=== PATIENT | female | born 1955 | race Caucasian/White ===

== ENCOUNTER → 2017-01-01 | Outpatient (CLI) | payer MEDICARE, OTHER ==
[~2017-01-01] VITALS: Ht 154.9 cm; Wt 118.0 kg
[~2017-01-01] MED LIST: ASPI-1093 PO; ATOR40TA28 PO; HYDR25TA PO; ISOS30TA6 PO; LEVO25TA9 PO; LOSA50TA37 PO; METF500T7 PO; NAPR-58 PO; NITR.4 SL; TRAZ-144 PO; VITAMIN D PO
[2017-01-01 14:17] VITALS: BP 108/52
== END | disposition home or self-care (01) ==
LOC: SRCNTR 14:11
PROVIDERS: ATTEND Podiatrist Foot & Ankle Surgery
DX: E11.9 Type 2 diabetes mellitus without complications (principal); M79.675 Pain in left toe(s); M79.674 Pain in right toe(s); L57.0 Actinic keratosis; L29.8 Other pruritus
CPT/HCPCS: G0463

== ENCOUNTER → 2017-02-26 | Outpatient (CLI) | payer MEDICARE, OTHER ==
[~2017-02-26] VITALS: Ht 152.4 cm; Wt 116.0 kg
[2017-02-26 14:55] VITALS: BP 146/72
== END | disposition home or self-care (01) ==
LOC: SRCNTR 14:46
PROVIDERS: ATTEND Podiatrist Foot & Ankle Surgery
DX: E11.9 Type 2 diabetes mellitus without complications (principal); I73.9 Peripheral vascular disease, unspecified; L57.0 Actinic keratosis; L29.8 Other pruritus; M79.675 Pain in left toe(s); M79.674 Pain in right toe(s)
CPT/HCPCS: G0463

== ENCOUNTER → 2017-04-30 | Outpatient (CLI) | payer MEDICARE, OTHER ==
[~2017-04-30] VITALS: Ht 154.9 cm; Wt 114.0 kg
[2017-04-30 14:41] VITALS: BP 157/87
== END | disposition home or self-care (01) ==
LOC: SRCNTR 14:27
PROVIDERS: ATTEND Podiatrist Foot & Ankle Surgery
DX: E11.51 Type 2 diabetes mellitus with diabetic peripheral angiopathy without gangrene (principal); L57.0 Actinic keratosis; M21.612 Bunion of left foot; M21.611 Bunion of right foot; L29.9 Pruritus, unspecified
CPT/HCPCS: G0463

== ENCOUNTER → 2017-07-30 | Outpatient (CLI) | payer MEDICARE, OTHER ==
[~2017-07-30] VITALS: Ht 154.9 cm; Wt 104.0 kg
[2017-07-30 14:30] VITALS: BP 132/80
== END | disposition home or self-care (01) ==
LOC: SRCNTR 14:24
PROVIDERS: ATTEND Podiatrist Foot & Ankle Surgery
DX: E11.9 Type 2 diabetes mellitus without complications (principal); I10 Essential (primary) hypertension; M79.644 Pain in right finger(s); M79.645 Pain in left finger(s); L57.0 Actinic keratosis; Z79.82 Long term (current) use of aspirin
CPT/HCPCS: G0463

== ENCOUNTER → 2017-12-31 | Outpatient (CLI) | payer MEDICARE, OTHER ==
[~2017-12-31] VITALS: Ht 154.9 cm; Wt 97.0 kg
[~2017-12-31] MED LIST changes: -ASPI-1093 PO; +ASPI-1188 PO
[2017-12-31 14:40] VITALS: BP 114/59
== END | disposition home or self-care (01) ==
LOC: SRCNTR 14:30
PROVIDERS: ATTEND Podiatrist Foot & Ankle Surgery
DX: E11.51 Type 2 diabetes mellitus with diabetic peripheral angiopathy without gangrene (principal); L57.0 Actinic keratosis; Z79.82 Long term (current) use of aspirin
CPT/HCPCS: G0463

== ENCOUNTER → 2018-04-01 | Outpatient (CLI) | payer OTHER ==
[~2018-04-01] VITALS: Ht 154.9 cm; Wt 101.0 kg
[~2018-04-01] MED LIST changes: +AMMO226L TP; +HYDR-4031 PO; +PARO20TA24 PO; +PHEN37.591 PO; +VITAD1000 PO
[2018-04-01 15:06] VITALS: BP 125/75
== END | disposition home or self-care (01) ==
LOC: SRCNTR 14:55
PROVIDERS: ATTEND Podiatrist Foot & Ankle Surgery
DX: E11.51 Type 2 diabetes mellitus with diabetic peripheral angiopathy without gangrene (principal); L57.0 Actinic keratosis; Z79.82 Long term (current) use of aspirin
CPT/HCPCS: G0463

== ENCOUNTER 2018-04-17 18:12 | Emergency (ER) | payer OTHER ==
[~2018-04-17] VITALS: Ht 154.9 cm; Wt 101.0 kg
[~2018-04-17 18:12] MED LIST changes: -AMMO226L TP; -HYDR-4031 PO; -PARO20TA24 PO; -PHEN37.591 PO; -VITAD1000 PO
[2018-04-17 18:32] LABS: GLUCOSE,POINT OF CARE 95 MG/DL (70-110)
[2018-04-17] MEDS ORDERED: PARO20TA24 PO (18:36)
[2018-04-17] MEDS ORDERED: AMMO226L TP (18:36)
[2018-04-17] MEDS ORDERED: VITAD1000 PO (18:36)
[2018-04-17] MEDS ORDERED: PHEN37.591 PO (18:36)
[2018-04-17] MEDS ORDERED: HYDR-4031 PO (18:36)
[2018-04-17] MEDS ORDERED: KETOROLAC TROMETHAMINE 60 MG/2 ML VIAL IM ONE (21:00)
[2018-04-17 21:16] LABS: BASOPHILS % (AUTO) 0.8 % (0.0-2.0); HEMATOCRIT 32.1 % (36-46); HEMOGLOBIN 10.9 g/dL (12.0-16.0); LYMPHOCYTES % (AUTO) 45.9 % (22.0-44.0); MEAN CORPUSCULAR HEMOGLOBIN 30.2 pg (26.0-34.0); MEAN CORPUSCULAR VOLUME 89 fL (80-100); MONOCYTES # (AUTO) 0.4 K/uL (0.1-1.0); MONOCYTES % (AUTO) 5.9 % (2.0-9.0); NEUTROPHILS # (AUTO) 3.1 K/uL (1.8-7.7); NEUTROPHILS % (AUTO) 46.4 % (40.0-70.0); PLATELET COUNT (AUTO) 249 K/uL (150-450); RED CELL DISTRIBUTION WIDTH 14.2 % (11.5-14.5)
[2018-04-17 21:30] LABS: ANION GAP 10 mmol/L (8-16); CALCIUM, TOTAL 8.7 mg/dL (8.8-10.5); CARBON DIOXIDE 24 mmol/L (22-29); CHLORIDE 108 mmol/L (98-107); CREATININE 0.78 mg/dL (0.60-1.30); GLOMERULAR FILTR. RATE CALC > 60 mL/min (>60); GLUCOSE,RANDOM 94 mg/dL (70-110); POTASSIUM 3.6 mmol/L (3.5-5.1); SODIUM SERUM 142 mmol/L (136-145); UREA NITROGEN, BLOOD 18 mg/dL (7-18)
[2018-04-17 21:36] LABS: ALANINE AMINOTRANSFERASE 22 U/L (12-78); ALBUMIN 3.4 g/dL (3.4-5.0); ALKALINE PHOSPHATASE 95 U/L (46-116); ASPARTATE AMINOTRANSFERASE 21 U/L (15-37); BILIRUBIN,TOTAL 0.3 mg/dL (0.1-1.0); TOTAL PROTEIN, SERUM 7.1 g/dL (6.4-8.2); URIC ACID 4.5 mg/dL (2.6-7.2)
[2018-04-17 21:45] LABS: C-REACTIVE PROTEIN QUANT 0.86 mg/dL (0.00-0.30)
[2018-04-17 22:35] LABS: ERYTHROCYTE SEDIMENTATION RATE 22 MM/HR (0-20)
[2018-04-17 23:52] VITALS: BP 120/74
== END 2018-04-17 23:54 | disposition home or self-care (01) ==
LOC: EMS 18:14
DX: M19.90 Unspecified osteoarthritis, unspecified site (principal); M79.89 Other specified soft tissue disorders; E11.9 Type 2 diabetes mellitus without complications; E78.00 Pure hypercholesterolemia, unspecified; I10 Essential (primary) hypertension; G89.29 Other chronic pain; E03.9 Hypothyroidism, unspecified
CPT/HCPCS: 36415; 51702; 73110; 80053; 82962; 84550; 85025; 85379; 85651; 86140; 93971; 96372; 99285; J1885

== ENCOUNTER → 2018-05-09 | Outpatient (CLI) | payer MEDICARE, OTHER ==
[~2018-05-09] VITALS: Ht 157.5 cm; Wt 100.0 kg
[~2018-05-09] MED LIST changes: +AMMO226L TP; +HYDR-4031 PO; +PARO20TA24 PO; +PHEN37.591 PO; +VITAD1000 PO; -VITAMIN D PO
[2018-05-09 10:59] VITALS: BP 105/79
[2018-05-09 11:38] LABS: GLUCOMETER DEV NAME(LOC) SHC; GLUCOSE,POINT OF CARE 134 MG/DL (70-110)
== END | disposition home or self-care (01) ==
LOC: SRCNTR 10:56
PROVIDERS: ATTEND Internal Medicine Cardiovascular Disease
DX: E11.9 Type 2 diabetes mellitus without complications (principal); I11.0 Hypertensive heart disease with heart failure; E78.5 Hyperlipidemia, unspecified; E03.9 Hypothyroidism, unspecified; E66.9 Obesity, unspecified
CPT/HCPCS: 82962; G0463

== ENCOUNTER 2020-04-03 14:56 | Emergency (ER) | payer OTHER ==
[~2020-04-03] VITALS: Ht 152.4 cm; Wt 109.1 kg
[~2020-04-03 14:56] MED LIST changes: -AMMO226L TP; -ASPI-1188 PO; +ASPI-1522 PO; +CHOL100018 PO; +HYDR-1475 PO; -HYDR-4031 PO; -HYDR25TA PO; +METF-911 PO; -METF500T7 PO; +NAPR-1025 PO; -NAPR-58 PO; -NITR.4 SL; +NITR0.4T52 SL; -PARO20TA24 PO; -PHEN37.591 PO; -TRAZ-144 PO; +TRAZ-252 PO; -VITAD1000 PO
[2020-04-03] MEDS ORDERED: KETOROLAC TROMETHAMINE 60 MG/2 ML VIAL IM ONE (15:45)
[2020-04-03 16:36] VITALS: BP 133/72
== END 2020-04-03 16:50 | disposition home or self-care (01) ==
LOC: EMS 14:58
DX: S83.92XA Sprain of unspecified site of left knee, initial encounter (principal); E11.9 Type 2 diabetes mellitus without complications; E78.00 Pure hypercholesterolemia, unspecified; I10 Essential (primary) hypertension; G89.29 Other chronic pain; Z79.82 Long term (current) use of aspirin; Z79.84 Long term (current) use of oral hypoglycemic drugs; X58.XXXA Exposure to other specified factors, initial encounter; Y93.89 Activity, other specified; Y92.89 Other specified places as the place of occurrence of the external cause; Y99.8 Other external cause status
CPT/HCPCS: 29505; 96372; 99283; J1885

== ENCOUNTER 2020-04-08 12:37 | Emergency (ER) | payer OTHER ==
[~2020-04-08] VITALS: Ht 152.4 cm; Wt 113.6 kg
[2020-04-08] MEDS ORDERED: KETOROLAC TROMETHAMINE 60 MG/2 ML VIAL IM ONE (14:00)
[2020-04-08 15:32] VITALS: BP 143/72
== END 2020-04-08 16:11 | disposition home or self-care (01) ==
LOC: EMS 12:38
DX: M17.12 Unilateral primary osteoarthritis, left knee (principal); E11.9 Type 2 diabetes mellitus without complications; E78.00 Pure hypercholesterolemia, unspecified; I10 Essential (primary) hypertension; G89.29 Other chronic pain; Z79.82 Long term (current) use of aspirin
CPT/HCPCS: 73562; 82962; 96372; 99283; J1885

== ENCOUNTER 2022-04-30 21:28 | Emergency (ER) | payer OTHER ==
[~2022-04-30] VITALS: Ht 152.4 cm; Wt 109.1 kg
[~2022-04-30 21:28] MED LIST changes: -HYDR-1475 PO; +HYDR-4870 PO; -ISOS30TA6 PO; +ISOS30TA92 PO; +LOSA-382 PO; -LOSA50TA37 PO; +METF-81 PO; -METF-911 PO
[2022-04-30 21:46] LABS: APPEARANCE,URINE HAZY (CLEAR); BILIRUBIN,URINE NEGATIVE (NEGATIVE); GLUCOSE, URINE (UA) NEGATIVE (NEGATIVE); KETONES,URINE NEGATIVE (NEGATIVE); LEUKOCYTE ESTERASE ,URINE NEGATIVE (NEGATIVE); NITRATE,URINE NEGATIVE (NEGATIVE); OCCULT BLOOD,URINE NEGATIVE (NEGATIVE); PROTEIN,URINE NEGATIVE (NEGATIVE); SPECIFIC GRAVITIY, URINE 1.024 (1.003-1.030); UROBILINOGEN,URINE <=1.0 mg/dL (<=1.0)
[2022-04-30] MEDS ORDERED: LIDOCAINE 5% TRANSDERMAL PATCH TD ONE (22:00)
[2022-04-30] MEDS ORDERED: KETOROLAC TROMETHAMINE 30 MG/ML VIAL IM ONE (22:00)
[2022-04-30] MEDS ORDERED: HYDROCODONE/ACETAMINOPHEN 5-325 MG TABLET PO ONE (22:00)
[2022-04-30 23:24] VITALS: BP 135/60
== END 2022-05-01 00:08 | disposition home or self-care (01) ==
LOC: EMS 21:32
DX: M54.42 Lumbago with sciatica, left side (principal); M19.90 Unspecified osteoarthritis, unspecified site; E11.9 Type 2 diabetes mellitus without complications; E78.00 Pure hypercholesterolemia, unspecified; E03.9 Hypothyroidism, unspecified; I10 Essential (primary) hypertension; Z87.39 Personal history of other diseases of the musculoskeletal system and connective tissue; Z98.890 Other specified postprocedural states
CPT/HCPCS: 81003; 96372; 99283; J1885

== ENCOUNTER 2024-07-12 12:34 | Emergency (ER) | payer OTHER ==
[~2024-07-12] VITALS: Ht 154.9 cm; Wt 109.0 kg
[~2024-07-12 12:34] MED LIST changes: -HYDR-4870 PO; +HYDR25TA2 PO
[2024-07-12 12:41] VITALS: TEMP 98.3
[2024-07-12] MEDS ORDERED: ASPI-1451 PO (12:44)
[2024-07-12] MEDS ORDERED: METF-1211 PO (12:44)
[2024-07-12] MEDS ORDERED: ATOR-2 PO (12:44)
[2024-07-12] MEDS ORDERED: HYDR25TA PO (12:44)
[2024-07-12] MEDS ORDERED: CHOL25TA4 PO (13:09)
[2024-07-12] MEDS ORDERED: EZET10TA57 PO (13:09)
[2024-07-12] MEDS ORDERED: VALS160T31 PO (13:09)
[2024-07-12] MEDS: AMOX TR/POT CLAV 875 MG/125 MG TABLET PO ONE (13:28)
[2024-07-12] MEDS: PERTUSS(ACELL),DIPH,TET/PF 0.5 ML SYRINGE [ADULT] IM. ONE (13:29)
[2024-07-12] MEDS ORDERED: AMOX-457 PO (13:41)
[2024-07-12] MEDS: IBUPROFEN 600 MG TABLET PO ONE (14:30)
[2024-07-12] MEDS: ACETAMINOPHEN 325 MG TABLET PO ONE (14:30)
[2024-07-12 14:45] VITALS: BP 150/60; PULSE 70; RESP 16; O2SAT 98
== END 2024-07-12 15:03 | disposition home or self-care (01) ==
LOC: EMS 12:34
DX: S61.451A Open bite of right hand, initial encounter (principal); S61.052A Open bite of left thumb without damage to nail, initial encounter; M19.90 Unspecified osteoarthritis, unspecified site; E11.9 Type 2 diabetes mellitus without complications; E78.00 Pure hypercholesterolemia, unspecified; I10 Essential (primary) hypertension; E03.9 Hypothyroidism, unspecified; G89.29 Other chronic pain; M54.9 Dorsalgia, unspecified; Z98.890 Other specified postprocedural states; W54.0XXA Bitten by dog, initial encounter; Y93.89 Activity, other specified; Y92.89 Other specified places as the place of occurrence of the external cause; Y99.8 Other external cause status
CPT/HCPCS: 90471; 90715; 99284

== ENCOUNTER 2025-06-21 19:36 | Emergency (ER) | payer OTHER ==
[~2025-06-21] VITALS: Ht 160 cm; Wt 108.6 kg
[~2025-06-21 19:36] MED LIST changes: +ASPI-1451 PO; -ASPI-1522 PO; +ATOR-2 PO; -ATOR40TA28 PO; -CHOL100018 PO; +CHOL25TA4 PO; +EZET10TA57 PO; +HYDR25TA PO; -HYDR25TA2 PO; -LOSA-382 PO; +METF-446 PO; -METF-81 PO; -NAPR-1025 PO; -NITR0.4T52 SL; +TOPI-257 PO; -TRAZ-252 PO; +VALS160T31 PO
[2025-06-21 19:48] VITALS: TEMP 98.1
[2025-06-21] MEDS ORDERED: TRAM50TA5 PO (21:49)
[2025-06-21 21:55] VITALS: BP 128/79; PULSE 64; RESP 16; O2SAT 98
== END 2025-06-21 21:56 | disposition home or self-care (01) ==
LOC: EMS 19:36
DX: H92.01 Otalgia, right ear (principal); M19.90 Unspecified osteoarthritis, unspecified site; E11.9 Type 2 diabetes mellitus without complications; E78.00 Pure hypercholesterolemia, unspecified; E03.9 Hypothyroidism, unspecified; I10 Essential (primary) hypertension; Z98.890 Other specified postprocedural states; Z79.899 Other long term (current) drug therapy
CPT/HCPCS: 99283